=== PATIENT | male | born 1950 | race American Indian/Alaskan Native ===

== ENCOUNTER 2019-05-12 12:38 | Emergency (ER) | payer MEDICARE, OTHER ==
[2019-05-12 13:18] VITALS: BP 140/67
--- NOTE | 2019-05-12 13:24 | Event Note ---
ED Screening Note Date of service: 05/12/19 Time: 13:17 ED Screening Note: This is 69 y.o. M. that presents to the ER with swelling and pain to RLE. Patient recently diagnosed with nephrolithiasis with obstruction at [facility]. He was referred to Urology and scheduled for surgery Tuesday. Patient reports swelling and pain started after taking medication and concerned. This initial assessment/diagnostic orders/clinical plan/treatment(s) is/are subject to change based on patients health status, clinical progression and re- assessment by fellow clinical providers in the ED. Further treatment and workup at subsequent clinical providers discretion. Patient/guardian urged not to elope from the ED as their condition may be serious if not clinically assessed and managed. Initial orders include: Duplex Doppler
--- NOTE | 2019-05-12 14:21 | Vascular Lab Report ---
DUPLEX DOPPLER LOWER EXTREMITY VEINS, RIGHT INDICATION / CLINICAL INFORMATION: swelling and pain to lateral r/o DVT. Right lower extremity pain and swelling. TECHNIQUE: Duplex doppler imaging was performed through the veins of the right lower extremity using venous comp ression and other maneuvers. COMPARISON: None available. FINDINGS: COMMON FEMORAL VEIN: Negative. FEMORAL VEIN: Negative. POPLITEAL VEIN: Negative. CALF VEINS: Negative. ADDITIONAL FINDINGS: None. IMPRESSION: 1. No sonographic evidence for DVT in the right lower extremity. Signer Name: Chano Weinberg MD Signed: 05/12/2019 2:16 PM Workstation Name: [id number]
[2019-05-12] MEDS ORDERED: DELTASONE PO STA (15:59)
[2019-05-12] MEDS ORDERED: PERCOCET 5/325 PO STA (15:59)
--- NOTE | 2019-05-12 16:38 | XRay Report ---
RIGHT ANKLE 3 VIEW(S) INDICATION / CLINICAL INFORMATION: ankle pain and swelling COMPARISON: None available. FINDINGS: BONES / JOINT(S): No acute fracture or subluxation. No significant arthritis. No significant joint ef fusion. SOFT TISSUES: Mild soft tissue swelling of the right lower leg and ankle. ADDITIONAL FINDINGS: None. Signer Name: Chano Weinberg MD Signed: 05/12/2019 4:34 PM Workstation Name: [id number]
--- NOTE | 2019-05-12 16:59 | Emergency Department Report ---
ED General Adult HPI - General Chief complaint: Extremity Injury, Lower Stated complaint: RT LEG SWELLING/KIDNEY STONE Time Seen by Provider: 05/12/19 13:14 Source: patient Mode of arrival: Ambulatory Limitations: No Limitations - History of Present Illness Initial comments: 69-year-old [place] male to emergency department complaining of spontaneous pa in to the right ankle for the last 1 day. Pain is dull and throbbing, worse with palpation and ambulation. He noticed a small amount of swelling but no redness and no broken skin. No calf pain, swelling, no pain to the knee. He retained. He denies any trauma. He was seen at the urgent care and ask him to the emergency department, but his symptoms. She reports no history of DVT, but does have renal stones with left kidney that are due for surgical fixation in 2 days. Radiation: extremity Severity scale (0 -10): 10 Quality: aching Consistency: constant Improves with: none Worsens with: movement Associated Symptoms: denies other symptoms Treatments Prior to Arrival: none - Related Data Previous Rx's Medication Instructions Recorded Last Taken Type predniSONE [Deltasone] 20 mg PO QDAY #4 tab 05/12/19 Unknown Rx Allergies Allergy/AdvReac Type Severity Reaction Status Date / Time No Known Allergies Allergy Verified 05/12/19 12:46 ED Review of Systems ROS: Stated complaint: RT LEG SWELLING/KIDNEY STONE Other details as noted in HPI Comment: All other systems reviewed and negative ED Past Medical Hx - Past Medical History Previous Medical History?: Yes Additional medical history: cholesterol - Surgical History Past Surgical History?: No - Social History Smoking Status: Never Smoker Substance Use Type: None - Medications Home Medications: Home Medications Medication Instructions Recorded Confirmed Last Taken Type predniSONE [Deltasone] 20 mg PO QDAY #4 tab 05/12/19 Unknown Rx ED Physical Exam - General Limitations: No Limitations General appearance: alert, in no apparent distress - Head Head exam: Present: atraumatic, normocephalic - Eye Eye exam: Present: normal appearance - ENT ENT exam: Present: mucous membranes moist - Neck Neck exam: Present: normal inspection - Respiratory Respiratory exam: Present: normal lung sounds bilaterally. Absent: respiratory distress - Cardiovascular Cardiovascular Exam: Present: regular rate, normal rhythm. Absent: systolic murmur, diastolic murmur, rubs, gallop - GI/Abdominal GI/Abdominal exam: Present: soft, normal bowel sounds - Rectal Rectal exam: Present: deferred - Extremities Exam Extremities exam: Present: normal inspection. Absent: calf tenderness (Maza's test normal) - Expanded Lower Extremity Exam Right Upper Leg exam: Present: normal inspection Knee exam: Present: normal inspection Lower Leg exam: Present: normal inspection Ankle exam: Present: tenderness (pain to the Achilles tendon region and pain to the medial malleoli region and anterior medial malleoli region. Drawer test is negative. Joint is stable. No erythema or swelling is noted. No broken skin.). Absent: laceration, ecchymosis, dislocation, erythema Foot/Toe exam: Present: full ROM. Absent: amputation, puncture wound, foreign body, tenderness at base of 5th metatarsal Neuro vascular tendon exam: Present: no vascular compromise. Absent: abnormal cap refill, motor deficit, sensory deficit - Back Exam Back exam: Present: normal inspection - Neurological Exam Neurological exam: Present: alert, oriented X3 - Psychiatric Psychiatric exam: Present: normal affect, normal mood - Skin Skin exam: Present: warm, dry, intact, normal color. Absent: rash ED Course Vital Signs 05/12/19 13:15 Temperature 98.2 F Pulse Rate 85 Respiratory 16 Rate Blood Pressure 140/67 [Left] O2 Sat by Pulse 95 Oximetry ED Medical Decision Making - Radiology Data Radiology results: report reviewed (negative DVT study in x-ray to the ankle shows no no arthritis or foreign bodies.) Critical care attestation.: If time is entered above; I have spent that time in minutes in the direct care of this critically ill patient, excluding procedure time. ED Disposition Clinical Impression: Right ankle pain, Ankle swelling Disposition: DC- TO HOME OR SELFCARE Is pt being admited?: No Does the pt Need Aspirin: No Condition: Stable Instructions: Arthralgia (ED) Prescriptions: predniSONE [Deltasone] 20 mg PO QDAY #4 tab Referrals: GREG BOTELLO MD [Primary Care Provider] - 3-5 Days
== END 2019-05-12 16:59 | disposition home or self-care (01) ==
LOC: ED 12:38
DX: M25.571 Pain in right ankle and joints of right foot (principal); R22.41 Localized swelling, mass and lump, right lower limb
CPT/HCPCS: 73610; 93971; 99284; J7512

== ENCOUNTER 2019-05-14 08:49 | Day surgery (SDC) | payer MEDICARE, OTHER ==
--- NOTE | 2019-05-14 09:27 | Anesthesia Consultation ---
Anesthesia Consult and Med Hx Date of service: 05/14/19 - Airway Anesthetic Teeth Evaluation: Good ROM Head & Neck: Adequate Mental/Hyoid Distance: Adequate Mallampati Class: Class II Intubation Access Assessment: Probably Good - Pulmonary Exam CTA: Yes - Cardiac Exam Cardiac Exam: RRR - Pre-Operative Health Status ASA Pre-Surgery Classification: ASA2 Proposed Anesthetic Plan: General - Pulmonary Hx Smoking: Yes (quit 40yrs ago) Hx Respiratory Symptoms: No - Cardiovascular System Hx Hypertension: No (HLD) Hx Heart Attack/AMI: No Hx Percutaneous Transluminal Coronary Angioplasty (PTCA): No - Central Nervous System Hx Seizures: No CVA: No - Gastrointestinal Hx Gastroesophageal Reflux Disease: No - Endocrine Hx Renal Disease: No (renal stones) Hx Liver Disease: No Hx Insulin Dependent Diabetes: No Hx Non-Insulin Dependent Diabetes: No Hx Thyroid Disease: No - Additional Comments Anesthesia Medical History Comments: No hx anesthetic complications.
[2019-05-14] MEDS ORDERED: SUBLIMAZE IV PRN (09:28)
--- NOTE | 2019-05-14 09:28 | Anesthesia Day of Surgery ---
Anesthesia Day of Surgery - Day of Surgery Patient Examined: Yes Patient H&P Reviewed: Yes Patient is NPO: Yes
[2019-05-14] MEDS ORDERED: XYLOCAINE MPF 2% ONE (09:38)
[2019-05-14] MEDS ORDERED: ZOFRAN ONE (09:38)
[2019-05-14] MEDS ORDERED: SUBLIMAZE ONE (09:39)
[2019-05-14] MEDS ORDERED: DIPRIVAN 10 MG/ML IV ONE (09:39)
[2019-05-14] MEDS ORDERED: VERSED IV NR (10:00)
[2019-05-14] MEDS ORDERED: LACTATED RINGERS 1,000 ML IV SCH (10:00)
[2019-05-14] MEDS ORDERED: ANCEF/STERILE WATER 2 GM/20 ML IV NR (11:00)
[2019-05-14] MEDS ORDERED: VERSED ONE (11:26)
[2019-05-14] MEDS ORDERED: OMNIPAQUE (240mg) IV ONE (11:35)
[2019-05-14] MEDS ORDERED: WATER FOR IRRIG STERILE IR ONE (11:35)
[2019-05-14] MEDS ORDERED: DECADRON ONE (11:50)
[2019-05-14] MEDS ORDERED: PHENYLEPHRINE/NS Syringe 1,000 MCG/10 ML IV ONE (11:51)
[2019-05-14] MEDS ORDERED: LASIX ONE (12:23)
--- NOTE | 2019-05-14 12:50 | Operative Report ---
PREOPERATIVE DIAGNOSIS: Severe left flank pain, right lower pelvic mass, left distal ureteral stone. POSTOPERATIVE DIAGNOSES: Severe left flank pain, right lower pelvic mass, left distal ureteral stone. PROCEDURE: Cystoscopy, left retrograde, left ureteral balloon dilatation, left stone extraction ureteroscopically, double-J stent. SURGEON: Tye Roman MD. ANESTHESIA: General. FINDINGS: This is a gentleman with severe left flank pain. He has a distal stone. He was also found to have a mass out of the urinary tract on the right lower pelvis area. A general surgery was consulted and he will see them next week. He now presents for treatment of the left side. DESCRIPTION OF PROCEDURE: The patient was brought to the operating room and placed on the operating table. Following induction of anesthesia, placed in lithotomy position, prepped and draped in usual sterile fashion. There was severe bullous edema around the left orifice. The right was normal. Retrograde showed the stone with hydroureteronephrosis and caliectasis. A Glidewire coiled in the kidney. Balloon dilatation was carried out. The prostate was slightly enlarged and had some superficial varicosities. At this point, the stone was visualized after the balloon was removed and he was extracted. The wire came distal and had to be reinserted ureteroscopically and to be sure it was in good position. This was done without difficulty. A double J coiled in the kidney and bladder. The patient tolerated the procedure well and brought to recovery in stable condition. JOB# [id number] SELENA/SAEED
--- NOTE | 2019-05-14 13:39 | Post Operative Note ---
Date of procedure: 05/14/19 Pre-op diagnosis: L uvj stone Post-op diagnosis: same Findings: large stone Procedure: cysto ureteroscopy stent Anesthesia: GETA Surgeon: EMMY REYNOSO Estimated blood loss: minimal Pathology: list Specimen disposition: given to patient/family Condition: stable Disposition: PACU
--- NOTE | 2019-05-14 13:40 | Discharge Summary ---
Short Stay Discharge Plan Activity: other (no straining ) Weight Bearing Status: Full Weight Bearing Diet: low fat, low cholesterol, low salt Special Instructions: other (inc fluids ) Additional Instructions: CALL DR SYED'S OFFICE FOR FOLLOW UP APPOINTMENT AND FOR ANY QUESTIONS OR CONCERNS RELATED TO PROCEDURE. INCREASE ORAL FLUIDS DRINK 8-10 CUPS OF WATER PER DAY Follow up with: GREG BOTELLO MD [Primary Care Provider] - 7 Days EMMY REYNOSO MD [Staff Physician] - 7 Days Forms: Outpatient Surgery DC Inst.
--- NOTE | 2019-05-14 13:49 | Fluoroscopy Report ---
FLUOROSCOPY RETROGRADE UROGRAPHY FLUOROSCOPY URETER/NEPHROSTOMY DILATATION LEFT HISTORY: Left ureteral stone. FINDINGS: 1 minute 57 seconds of fluoroscopy time was provided by radiology during retrograde urography by the urologist. 9 fluoroscopic images were saved by the urologist. The images demonstrate an obstructing f illing defect in the mid left ureter consistent with a stone. Subsequent images demonstrate removal o f the stone, balloon dilatation of the left ureter and placement of a left ureteral stent with good d rainage on the final image. No images of the right collecting system are submitted. Please correlate with the procedural report by urology. IMPRESSION: Left ureteral stone removal. Left ureteral stent placement. Signer Name: Adrián Meza Jr, MD Signed: 05/14/2019 1:44 PM Workstation Name: [id number]
[2019-05-14 13:55] VITALS: BP 120/85
--- NOTE | 2019-05-14 14:18 | Post Anesthesia Evaluation ---
- Post Anesthesia Evaluation Patient Participated: Yes Airway Patent: Yes Stable Respiratory Function: Yes Nausea/Vomiting: No Temp > 96.8F: Yes Pain Manageable: Yes Adequeate Hydration: Yes Anesthesia Complications: No
== END 2019-05-14 14:10 | disposition home or self-care (01) ==
LOC: OR 08:49
PROVIDERS: ATTEND Urology
DX: N13.2 Hydronephrosis with renal and ureteral calculous obstruction (principal); N28.89 Other specified disorders of kidney and ureter; I86.8 Varicose veins of other specified sites; E78.00 Pure hypercholesterolemia, unspecified; I10 Essential (primary) hypertension; Z79.899 Other long term (current) drug therapy; Z87.891 Personal history of nicotine dependence
CPT/HCPCS: 52320; 52332; 74420; 74485; A4217; J0690; J1100; J1940; J2250; J2370; J2405; J2704; J3010; J7120; Q9967; C1726; C1758; C1769; C2617